=== PATIENT | female | born 1990 | race Caucasian/White ===

== ENCOUNTER 2016-05-05 19:12 | Emergency (ER) | payer SELFPAY ==
--- NOTE | ~2016-05-05 | CR63 ---
[facility] A Service of [facility] RADIOLOGY TEXT RESULTS PATIENT: ROSI THOMAS LOCATION: [place] : [birth year] UNIT #: [id number] AGE: [address]: Agatha Alves SEX: F ORDER DR: [id number] [facility]. [place], [place] [address] [id number] MR#: [id number] Acc #: [id number] NAME: ROSI THOMAS : 1990 SEX: F STUDY DATE/TIME: 05/05/2016 18:49 UNIT: CFTX ROOM: STUDY DESCRIPTION: CR Chest 2 View Attending Physician: Agatha Alves P.A.-C. Ordering Physician: Agatha Alves P.A.-C. Primary Care Physician: [facility] MEDICAL IMAGING REPORT This report is preliminary unless electronic signature is present EXAM PA lateral chest DATE: 05/05/2016 HISTORY Chest tightness, pressure and cough for 3 days. COMPARISON PA and lateral chest 02/01/2007 FINDINGS PA and lateral examination of the chest upright shows a good expansion of the parenchyma with a normal distribution of the pulmonary vascularity. There is no indication of congestion, effusion, infiltrate, tumor, or nodular density. The pleural reflections and diaphragmatic contours are normal. The cardiac silhouette and mediastinal anatomy is within normal limits. IMPRESSION Normal chest. Dictated by... Carmen Ibarra M.D. THIS IS AN ELECTRONICALLY VERIFIED REPORT Carmen Ibarra M.D. at 05/06/2016 10:[address] [facility]/mitra TD: 05/06/2016 08:48 JOB #: [id number] [facility] A Service [facility] RADIOLOGY TEXT RESULTS PATIENT: ROSI THOMAS LOCATION: [place] : [birth year] UNIT #: [id number] AGE: [address]: Agatha Alves SEX: F ORDER DR: MEDICAL IMAGING REPORT COPY
[2016-05-05 18:40] LABS: INFLUENZA A NEG (NEG); INFLUENZA B NEG (NEG)
[~2016-05-05 19:12] MED LIST: AUGMENTIN PO; BENADRYL25 M1 PO; DELTASONE20 MG PO; FAMOTIDINE PO; MEDROL4 MG/DOSE- PO; MOBIC15 MG PO; NAPROXEN PO; NO MEDICATIONS
== END 2016-05-05 19:20 | disposition home or self-care (01) ==
LOC: CFTX 19:12
PROVIDERS: Physician Assistant
DX: J20.9 Acute bronchitis, unspecified (principal); Z79.899 Other long term (current) drug therapy
CPT/HCPCS: 71020; 87651; 87804; 99283

== ENCOUNTER 2016-10-16 11:28 | Emergency (ER) | payer OTHER ==
[~2016-10-16] VITALS: Ht 157.5 cm; Wt 74.8 kg
--- NOTE | ~2016-10-16 | EKG ---
PATIENT: ROSI THOMAS UNIT #: [id number] Ventricular Rate: 88 BPM Atrial Rate: 88 BPM P-R Interval: 126 ms QRS Duration: 88 ms Q-T Interval: 364 ms QTC Calculation(Bezet): 440 ms P [place]: -1 degrees Calculated R [place]: 44 degrees Calculated T [place]: 18 degrees Diagnosis Line: Normal sinus rhythm with sinus arrhythmia Diagnosis Line: Normal ECG Diagnosis Line: No previous ECGs available Diagnosis Line: Confirmed by ARPITA NOLASCO MD ([id number]) on 10/16/2016 Diagnosis Line: 5:02:55 PM INTERPRETING MD: CONSTANCE DOUGLAS
[2016-10-16 13:00] LABS: POC - CKMB <1.0 ng/mL (0.0-7.9); POC - TROPONIN <0.05 ng/mL (<=0.05)
[2016-10-16 13:19] LABS: BASOPHIL# 0.1 X10e3 (0-0.3); BASOPHIL% 0.6 % (0-2.5); DIFF IND NO; EOSINOPHIL# 0.1 X10e3 (0-0.7); EOSINOPHIL% 0.9 % (0.0-7.0); HEMATOCRIT 39.4 % (35.0-45.0); HEMOGLOBIN 13.5 gm/dL (12.0-16.0); LYMPHOCYTE# 2.2 X10e3 (1.0-3.5); LYMPHOCYTE% 24.7 % (17.0-45.0); MEAN CELL VOLUME 93.3 FL (83-96); MEAN CORPUSCULAR HGB CONC 34.3 g/dL (30-36); MEAN PLATELET VOLUME 9.3 FL (6.5-11.5); MONOCYTE# 0.5 X10e3 (0-1.0); MONOCYTE% 5.6 % (3.0-12.0); NEUTROPHIL# 6.1 X10e3 (1.5-7.1); NEUTROPHIL% 68.2 % (40-75); PLATELET COUNT 222 X10e3 (140-420); RED BLOOD COUNT 4.22 X10e (3.90-5.30); RED CELL DISTRIBUTION WIDTH 13.3 % (11.0-15.5); WHITE BLOOD COUNT 8.9 X10e3 (4.0-10.5)
[2016-10-16 13:42] LABS: ALBUMIN SERUM 3.8 g/dL (3.5-5.0); BILIRUBIN, DIRECT 0.1 mg/dL (0.0-0.2); BILIRUBIN,INDIRECT 0.5 mg/dL (0.0-0.9); BILIRUBIN,TOTAL 0.6 mg/dL (0.2-2.0); CALCIUM SERUM 9.3 mg/dL (8.4-10.2); CREATININE SERUM 0.4 mg/dL (0.6-1.4); GLOM FILT RATE Estimated 142.8 mL/min (>60); POTASSIUM 3.4 mmol/L (3.5-5.1); PROTEIN TOTAL SERUM 6.4 g/dL (6.0-8.3)
== END 2016-10-16 14:58 | disposition home or self-care (01) ==
LOC: CED 11:28
PROVIDERS: Emergency Medicine
DX: F41.0 Panic disorder [episodic paroxysmal anxiety] (principal); F17.200 Nicotine dependence, unspecified, uncomplicated; Z79.899 Other long term (current) drug therapy; Z91.040 Latex allergy status
CPT/HCPCS: 80048; 80076; 82553; 84484; 84703; 85025; 85379; 93005; 99285